=== PATIENT | male | born 2000 | race Caucasian/White ===

== ENCOUNTER 2020-11-23 16:20 | Emergency (ER) | payer OTHER ==
--- NOTE | 2020-11-23 16:47 | ED Physician Documentation ---
History of Present Illness - Stated complaint Stated Complaint: BILAT FOOT INJ - Chief complaint Chief Complaint: Trauma Ext - Additonal information Additional information: 20-year-old male presents emergency department for evaluation of bilateral foot pain though left greater than right. He said foot was rolled over by an approximate 7000 pound trailer inadvertently. In order to remove his foot from under the trailer it was backed again over his foot. For a period of time his left foot was wedged under the wheel. No history of previous injury to either foot. Review of Systems Constitutional: reports: Reviewed and negative Ears: reports: Reviewed and negative Nose: reports: Reviewed and negative Throat: reports: Reviewed and negative Cardiac: reports: Reviewed and negative Respiratory: reports: Reviewed and negative Musculoskeletal: reports: Extremity pain (bilateral feet) PD PAST MEDICAL HISTORY - Allergies Allergies/Adverse Reactions: Allergies Allergy/AdvReac Type Severity Reaction Status Date / Time Penicillins Allergy Anaphylaxis Verified 11/23/20 16:25 PD ED PE EXPANDED - General General: Alert, No acute distress - Extremities Extremities: Right foot (mild tenderness dorsum of foot over mid 2/3rd metatarsals. Full ROM. Normal dorsi and plantar flexion. 2+ DP pulse), Left foot (significant tenderness distal 1st/2nd metatarsal. jold swelling. FUll ROM foot. no deformity. Normal dorsi and plantar flexion. 2+ DP pulse), Other (Patient has a mildly antalgic gait with mild limp noted on left foot. However he is able to bear nearly full weight on both feet) Results - Vitals Vitals: Vital Signs - 24 hr 11/23/20 16:25 Temperature 36.5 C Heart Rate 85 Respiratory 16 Rate Blood Pressure 160/70 H O2 Saturation 96 Oxygen O2 Source Room air - Rads (name of study) bilat foot xray Radiology: Final report received (No visualized acute fracture or dislocation.) PD MEDICAL DECISION MAKING - ED course Complexity details: considered differential, d/w patient ED course: 20-year-old male presents the emergency department for evaluation of bilateral foot pain the left greater than right when his feet were rolled over by a trailer at work. He is in the [place]. He is able to bear nearly full weight on both feet the left has increased tenderness near the base of the great toe MCP. X-ray of both feet does not show acute fracture or dislocation. Discussed with patient that in some cases occult fractures can be missed with first imaging. Recommend Tylenol and ibuprofen. If not markedly improved in 7 to 10 days return for a second look. Patient will follow up with [facility] tomorrow. Departure - Departure Disposition: 01 Home, Self Care Clinical Impression: Contusion of left foot Qualifiers: Encounter type: initial encounter Qualified Code(s): S90.32XA - Contusion of left foot, initial encounter Contusion of right foot Qualifiers: Encounter type: initial encounter Qualified Code(s): S90.31XA - Contusion of right foot, initial encounter Condition: Stable Record reviewed to determine appropriate education?: Yes Instructions: ED Contusion Lower Extr Ch Comments: Does not show anyJohn the x-ray both of your feet obvious fractures. It is most likely that you have fairly significant bruising especially on your left foot. Would like you to take Tylenol and ibuprofen with food 2-3 times a day to help with discomfort. In some cases very subtle or difficult to see fractures can be missed on the first x-ray. Therefore if your pain is not markedly better in 7 to 10 days your foot should be stef-rayed. Please follow-up with [facility] tomorrow to discuss this ED visit and if any work restrictions are indicated.
--- NOTE | 2020-11-23 17:06 | XRAY Report ---
PROCEDURE: Foot 3 View BILAT INDICATIONS: both feet rolled over by 7000 lb trailer TECHNIQUE: 3 views of the foot were acquired. COMPARISON: None FINDINGS: Bones: No fractures or dislocations. No suspicious bony lesions. Soft tissues: No tibiotalar joint effusion. Achilles tendon appears normal. IMPRESSION: No visualized acute fracture or dislocation. However, occult injury cannot be excluded. Recommend seth rt interval imaging follow-up in 7-10 days as clinically indicated for additional evaluation. Reviewed by: Africa Leigh MD on 11/23/2020 5:04 PM PDT Approved by: Africa Leigh MD on 11/23/2020 5:04 PM PDT Station ID: [id number]
[2020-11-23 17:42] VITALS: BP 143/73
== END 2020-11-23 17:44 | disposition home or self-care (01) ==
LOC: ED 16:20
DX: S90.32XA Contusion of left foot, initial encounter (principal); S90.31XA Contusion of right foot, initial encounter; W20.8XXA Other cause of strike by thrown, projected or falling object, initial encounter; Y92.139 Unspecified place military base as the place of occurrence of the external cause; Y99.1 Military activity
CPT/HCPCS: 99282; 99283